=== PATIENT | female | born 1960 | race Caucasian/White ===

== ENCOUNTER 2016-07-26 12:13 | Day surgery (SDC) | payer OTHER ==
[~2016-07-26] VITALS: Ht 157.5 cm; Wt 81.0 kg
[~2016-07-26 12:13] MED LIST: BENADRYL25 MG PO; CITALOPRAM HBR20 M1 PO; DEPAKOTE125 MG PO; DEPAKOTE500 MG PO; DESYREL100 MG PO; DESYREL300 MG PO; DEXILANT60 MG PO; FLAVOXATE HCL100 MG PO; FLEXERIL10 MG PO; FLEXERIL5 M1 PO; FLONASE16 G1 BOTH NARES; GABAPENTIN100 MG PO; K-DUR20 MEQ PO; LASIX40 MG PO; METOCLOPRAMIDE H5 MG PO; MOBIC15 MG PO; MYRBETRIQ25 MG PO; NORCO 5/3251 TABLET PO; OXCARBAZEPINE150 MG PO; OXCARBAZEPINE300 MG PO; PEPCID20 MG PO; PROTONIX40 M1 PO; SIMVASTATIN40 M1 PO; TOPAMAX25 MG PO; TOPAMAX50 MG PO; TRAZODONE HCL100 MG PO; ZANTAC150 M1 PO; ZYRTEC10 M2 PO
[2016-07-26 13:20] VITALS: BP 121/83
[2016-07-26 13:39] LABS: ANION GAP 7 MEQ/L (2-14); CHLORIDE 104 MEQ/L (99-109); GFR ESTIMATE (CALCULATED) > 59 mL/min/; GLUCOSE 93 mg/dL (70-99); POTASSIUM 3.9 MEQ/L (3.7-5.4); SAMPLE HEMOLYSIS CHECK 0; SAMPLE ICTERIC CHECK 0; SAMPLE LIPEMIA CHECK 0; SODIUM 140 MEQ/L (136-147); UREA NITROGEN (BUN) 17 mg/dL (9-23)
[2016-07-26 18:20] VITALS: BP 155/89
[2016-07-26 20:00] VITALS: BP 16/89
== END 2016-07-26 20:20 | disposition home or self-care (01) ==
LOC: SDC 12:13
PROVIDERS: Orthopaedic Surgery
DX: M80.08XA Age-related osteoporosis with current pathological fracture, vertebra(e), initial encounter for fracture (principal); M89.78 Major osseous defect, other site; M47.816 Spondylosis without myelopathy or radiculopathy, lumbar region; M51.46 Schmorl's nodes, lumbar region; K21.9 Gastro-esophageal reflux disease without esophagitis; K44.9 Diaphragmatic hernia without obstruction or gangrene; M06.9 Rheumatoid arthritis, unspecified; J30.9 Allergic rhinitis, unspecified; Z82.49 Family history of ischemic heart disease and other diseases of the circulatory system; Z88.0 Allergy status to penicillin; Z88.8 Allergy status to other drugs, medicaments and biological substances
CPT/HCPCS: 80048; J0330; J1170; J2250; J2405; J2765; J3010

== ENCOUNTER 2016-08-20 21:16 | Observation (INO) | payer OTHER ==
[~2016-08-20] VITALS: Ht 157.5 cm; Wt 82.0 kg
[2016-08-20 22:50] LABS: EOSINOPHIL (%) 0.9 % (0-5); EOSINOPHIL COUNT 0.1 K/uL (0-0.3); HEMATOCRIT 41.7 % (36.0-46.0); IMMATURE GRANULOCYTE (%) 0.3 % (0.0-0.7); INSTRUMENT ABS NEUTROPHIL CT 5.3 K/uL; MCH 32.9 PG (29.0-34.0); MCHC 32.6 G/DL (30.0-36.0); MONOCYTE COUNT 0.6 K/uL (0-0.8); NEUTROPHIL (%) 75.6 % (45-76); NEUTROPHIL COUNT 5.3 K/uL (1.8-6.4); PLATELET COUNT 143 K/uL (156-360); RBC DIS.WIDTH-CV 12.4 % (11.8-14.6); RBC DIS.WIDTH-SD 46.5 % (39-53); RED BLOOD COUNT 4.13 M/uL (3.80-5.20)
[2016-08-20 23:01] LABS: AMYLASE 45 IU/L (1-118); CHLORIDE 104 mEq/L (99-109); POTASSIUM 4.8 mEq/L (3.7-5.4); SODIUM 140 mEq/L (136-147)
[2016-08-20 23:02] LABS: GLUCOSE 149 mg/dL (70-99)
[2016-08-20 23:04] LABS: ANION GAP 8 MEQ/L (2-14)
[2016-08-20 23:06] LABS: GFR ESTIMATE (CALCULATED) > 59 mL/min/; SERUM ETHYL ALCOHOL < 10 mg/dL
[2016-08-20 23:07] LABS: UREA NITROGEN (BUN) 11 mg/dL (9-23)
[2016-08-20 23:09] LABS: LIPASE 42 U/L (1.0-51.0)
[2016-08-21] MEDS ORDERED: BOTOX100 UNITS IJ ×2 (04:14→04:25)
[2016-08-21] MEDS ORDERED: SIMVASTATIN20 MG PO (04:15)
[2016-08-21] MEDS ORDERED: VESICARE10 MG PO (04:15)
[2016-08-21] MEDS ORDERED: POTASSIUM CHLO10 ME4 PO (04:16)
[2016-08-21] MEDS ORDERED: OXCARBAZEPINE300 MG PO (04:20)
[2016-08-21 05:12] VITALS: BP 109/71
[2016-08-21 07:01] LABS: ALKALINE PHOSPHATASE 55 IU/L (3-129); CREATINE KINASE 41 IU/L (1-294); TOTAL BILIRUBIN 0.3 MG/DL (0.0-1.0)
[2016-08-21 07:40] VITALS: BP 120/65
[2016-08-21 09:01] LABS: HEMATOCRIT 37.6 % (36.0-46.0); MCH 34.8 PG (29.0-34.0); MCV 102.2 FL (83-99); MEAN PLAT.VOLUME 12.5 uM^3 (9.5-12.4); PLATELET COUNT 137 K/uL (156-360); RBC DIS.WIDTH-CV 12.5 % (11.8-14.6); RBC DIS.WIDTH-SD 47.1 % (39-53); RED BLOOD COUNT 3.68 M/uL (3.80-5.20); WHITE BLOOD COUNT 6.6 K/uL (4.1-10.2)
[2016-08-21 09:19] LABS: ANION GAP 11 MEQ/L (2-14); CHLORIDE 104 MEQ/L (99-109); GFR ESTIMATE (CALCULATED) > 59 mL/min/; GLUCOSE 113 mg/dL (70-99); POTASSIUM 3.9 MEQ/L (3.7-5.4); SODIUM 140 MEQ/L (136-147); UREA NITROGEN (BUN) 12 mg/dL (9-23)
[2016-08-21 11:56] VITALS: BP 118/83
[2016-08-21 14:02] LABS: ADD MIUA? YES; BILIRUBIN NEGATIVE; BLOOD NEGATIVE; COLOR YELLOW ((YELLOW)); GLUCOSE (STRIP) NEGATIVE; KETONES NEGATIVE; LEUKOCYTES LARGE; NITRITE POSITIVE; PROTEIN (STRIP) NEGATIVE; SPECIFIC GRAVITY 1.009 (1.000-1.030); UROBILINOGEN 0.2 MG/DL (0.2-1.0)
[2016-08-21 14:13] LABS: BACTERIA 3+ /HPF; EPITHELIAL CELLS RARE /HPF; MUCUS TRACE /LPF; RED BLOOD CELLS 0-5 /HPF (0-5); WHITE BLOOD CELLS TNTC /HPF (0-5); WHITE BLOOD CELLS CLUMP FEW /HPF (0-5)
[2016-08-21] MEDS ORDERED: DESYREL100 MG PO (14:27)
[2016-08-21 15:07] LABS: AMPHETAMINES QUANT VALUE 0 NG/ML; BARBITUATES QUANT VALUE 0 NG/ML; BENZODIAZEPINES QUANT VALUE 0 NG/ML; BENZODIAZEPINES, URINE SCREEN Negative (200 ng/mL); MARIJUANA QUANT VALUE 0 NG/ML; OPIATES QUANTITATIVE VALUE 0 NG/ML; PHENCYCLIDINE QUANT VALUE 0 NG/ML
[2016-08-21 16:48] VITALS: BP 139/69
[2016-08-21 20:33] VITALS: BP 134/76
[2016-08-22 00:43] VITALS: BP 130/60
[2016-08-22 06:13] LABS: HEMATOCRIT 33.6 % (36.0-46.0); MCHC 34.2 G/DL (30.0-36.0); MCV 99.4 FL (83-99); MEAN PLAT.VOLUME 11.7 uM^3 (9.5-12.4); PLATELET COUNT 117 K/uL (156-360); RBC DIS.WIDTH-CV 12.4 % (11.8-14.6); RBC DIS.WIDTH-SD 45.6 % (39-53); RED BLOOD COUNT 3.38 M/uL (3.80-5.20); WHITE BLOOD COUNT 5.3 K/uL (4.1-10.2)
[2016-08-22 06:35] LABS: ANION GAP 5 MEQ/L (2-14); CHLORIDE 107 MEQ/L (99-109); GFR ESTIMATE (CALCULATED) > 59 mL/min/; GLUCOSE 92 mg/dL (70-99); SAMPLE HEMOLYSIS CHECK 0; SAMPLE ICTERIC CHECK 0; SAMPLE LIPEMIA CHECK 0; SODIUM 141 MEQ/L (136-147); UREA NITROGEN (BUN) 10 mg/dL (9-23)
[2016-08-22 07:41] VITALS: BP 118/75
[2016-08-22 16:01] VITALS: BP 114/66
[2016-08-22 22:53] VITALS: BP 96/56
[2016-08-23 08:10] LABS: HEMATOCRIT 33.3 % (36.0-46.0); MCH 33.2 PG (29.0-34.0); MCV 100.6 FL (83-99); MEAN PLAT.VOLUME 11.6 uM^3 (9.5-12.4); PLATELET COUNT 125 K/uL (156-360); RBC DIS.WIDTH-CV 12.7 % (11.8-14.6); RBC DIS.WIDTH-SD 47.1 % (39-53); RED BLOOD COUNT 3.31 M/uL (3.80-5.20); WHITE BLOOD COUNT 4.8 K/uL (4.1-10.2)
[2016-08-23 08:20] LABS: CHLORIDE 107 mEq/L (99-109); POTASSIUM 4.2 mEq/L (3.7-5.4); SODIUM 141 mEq/L (136-147)
[2016-08-23 08:22] LABS: GLUCOSE 90 mg/dL (70-99)
[2016-08-23 08:23] LABS: ANION GAP 4 MEQ/L (2-14)
[2016-08-23 08:25] LABS: GFR ESTIMATE (CALCULATED) > 59 mL/min/
[2016-08-23 08:26] LABS: UREA NITROGEN (BUN) 18 mg/dL (9-23)
[2016-08-23 15:56] VITALS: BP 94/51
[2016-08-24 00:11] VITALS: BP 156/80
[2016-08-24 07:51] VITALS: BP 108/69
[2016-08-24 15:48] VITALS: BP 102/60
[2016-08-24 23:58] VITALS: BP 111/67
[2016-08-25 08:00] VITALS: BP 99/59
[2016-08-25 10:00] LABS: HEMATOCRIT 33.7 % (36.0-46.0); MCH 34.3 PG (29.0-34.0); MCHC 33.8 G/DL (30.0-36.0); MCV 101.5 FL (83-99); MEAN PLAT.VOLUME 11.3 uM^3 (9.5-12.4); PLATELET COUNT 156 K/uL (156-360); RBC DIS.WIDTH-CV 12.7 % (11.8-14.6); RBC DIS.WIDTH-SD 47.4 % (39-53); RED BLOOD COUNT 3.32 M/uL (3.80-5.20); WHITE BLOOD COUNT 3.1 K/uL (4.1-10.2)
[2016-08-25 10:47] LABS: ANION GAP 7 MEQ/L (2-14); CHLORIDE 100 MEQ/L (99-109); GFR ESTIMATE (CALCULATED) > 59 mL/min/; GLUCOSE 104 mg/dL (70-99); SAMPLE HEMOLYSIS CHECK 0; SAMPLE ICTERIC CHECK 0; SAMPLE LIPEMIA CHECK 0; SODIUM 138 MEQ/L (136-147)
[2016-08-25 10:52] LABS: UREA NITROGEN (BUN) 29 mg/dL (9-23)
[2016-08-25 16:00] VITALS: BP 105/66
[2016-08-25 23:36] VITALS: BP 96/53
[2016-08-26 06:12] VITALS: BP 98/61
[2016-08-26 09:21] LABS: HEMATOCRIT 35.8 % (36.0-46.0); MCH 33.9 PG (29.0-34.0); MCHC 33.2 G/DL (30.0-36.0); MEAN PLAT.VOLUME 10.7 uM^3 (9.5-12.4); PLATELET COUNT 176 K/uL (156-360); RBC DIS.WIDTH-CV 12.9 % (11.8-14.6); RBC DIS.WIDTH-SD 48.2 % (39-53); RED BLOOD COUNT 3.51 M/uL (3.80-5.20); WHITE BLOOD COUNT 3.9 K/uL (4.1-10.2)
[2016-08-26 10:10] LABS: ANION GAP 9 MEQ/L (2-14); CHLORIDE 101 MEQ/L (99-109); GFR ESTIMATE (CALCULATED) > 59 mL/min/; GLUCOSE 88 mg/dL (70-99); POTASSIUM 4.1 MEQ/L (3.7-5.4); SAMPLE HEMOLYSIS CHECK 0; SAMPLE ICTERIC CHECK 0; SAMPLE LIPEMIA CHECK 0; SODIUM 140 MEQ/L (136-147); UREA NITROGEN (BUN) 28 mg/dL (9-23)
[2016-08-26 11:50] VITALS: BP 107/56
[2016-08-26 23:24] VITALS: BP 141/66
[2016-08-27 17:06] VITALS: BP 99/57
[2016-08-27 23:53] VITALS: BP 111/78
[2016-08-28 09:38] VITALS: BP 140/70
[2016-08-28 15:50] VITALS: BP 118/96
[2016-08-28 23:49] VITALS: BP 115/67
[2016-08-29 08:47] VITALS: BP 102/64
[2016-08-29 12:01] VITALS: BP 130/60
[2016-08-29 12:31] VITALS: BP 99/60
[2016-08-29 16:40] VITALS: BP 109/53
[2016-08-29 23:42] VITALS: BP 136/87
[2016-08-30] MEDS ORDERED: BACTRIM,SEPT1 TABLET PO (10:24)
== END 2016-08-30 16:09 ==
LOC: EME 21:16 → 3EAST 08-21 03:28 → EDOF 08-21 03:28 → 3EAST 08-21 04:50
PROVIDERS: Emergency Medicine; Hospitalist; Physician Assistant
DX: S42.292A Other displaced fracture of upper end of left humerus, initial encounter for closed fracture (principal); W01.0XXA Fall on same level from slipping, tripping and stumbling without subsequent striking against object, initial encounter; N39.0 Urinary tract infection, site not specified; B96.20 Unspecified Escherichia coli [E. coli] as the cause of diseases classified elsewhere; N39.3 Stress incontinence (female) (male); F33.9 Major depressive disorder, recurrent, unspecified; B37.2 Candidiasis of skin and nail; R26.9 Unspecified abnormalities of gait and mobility; M50.322 Other cervical disc degeneration at C5-C6 level; M50.323 Other cervical disc degeneration at C6-C7 level; M50.321 Other cervical disc degeneration at C4-C5 level; G89.29 Other chronic pain; G62.89 Other specified polyneuropathies; E78.5 Hyperlipidemia, unspecified; M48.02 Spinal stenosis, cervical region; Z88.0 Allergy status to penicillin; K21.9 Gastro-esophageal reflux disease without esophagitis; Z60.2 Problems related to living alone
CPT/HCPCS: 70450; 70551; 71250; 72125; 72141; 72148; 73030; 73502; 73590; 80048; 80076; 80164; 80306 90; 81003; 82150; 82550; 82607; 83690; 84443; 85025; 85027; 86900; 86901; 87077; 87086; 87186; 93926; 97530 GO; 97530 GP; 99281; 99285; G0378; G0480; J0696; J1644; J2405; J7030; J7050

== ENCOUNTER 2016-09-25 10:16 | Emergency (ER) | payer OTHER ==
[~2016-09-25] VITALS: Ht 157.5 cm; Wt 82.5 kg
[~2016-09-25 10:16] MED LIST changes: +BACTRIM,SEPT1 TABLET PO; +BOTOX100 UNITS IJ; +POTASSIUM CHLO10 ME4 PO; +SIMVASTATIN20 MG PO; +VESICARE10 MG PO
[2016-09-25 11:56] LABS: HEMATOCRIT 37.1 % (36.0-46.0); MCH 33.3 PG (29.0-34.0); MCHC 32.3 G/DL (30.0-36.0); MCV 103.1 FL (83-99); MEAN PLAT.VOLUME 10.4 uM^3 (9.5-12.4); PLATELET COUNT 145 K/uL (156-360); RBC DIS.WIDTH-SD 49.2 % (39-53); WHITE BLOOD COUNT 3.8 K/uL (4.1-10.2)
[2016-09-25 12:13] LABS: CHLORIDE 101 mEq/L (99-109); POTASSIUM 4.4 mEq/L (3.7-5.4); SODIUM 138 mEq/L (136-147)
[2016-09-25 12:15] LABS: GLUCOSE 81 mg/dL (70-99)
[2016-09-25 12:16] LABS: ANION GAP 6 MEQ/L (2-14)
[2016-09-25 12:17] LABS: TOTAL BILIRUBIN 0.3 mg/dL (0.0-1.0); TROP-I INTERPRETATION NEGATIVE; TROPONIN-I < 0.01 ng/mL (0.0-0.30)
[2016-09-25 12:18] LABS: ALKALINE PHOSPHATASE 81 IU/L (3-129)
[2016-09-25 12:19] LABS: GFR ESTIMATE (CALCULATED) > 59 mL/min/
[2016-09-25 12:20] LABS: UREA NITROGEN (BUN) 15 mg/dL (9-23)
[2016-09-25 14:40] LABS: TROP-I INTERPRETATION NEGATIVE; TROPONIN-I < 0.01 ng/mL (0.0-0.30)
[2016-09-25] MEDS ORDERED: BACLOFEN10 MG PO (15:08)
[2016-09-25 15:20] VITALS: BP 117/67
== END 2016-09-25 15:21 | disposition home or self-care (01) ==
LOC: EME 10:16
PROVIDERS: Nurse Practitioner Family
DX: R07.89 Other chest pain (principal); E78.5 Hyperlipidemia, unspecified; F32.9 Major depressive disorder, single episode, unspecified; K21.9 Gastro-esophageal reflux disease without esophagitis; Z87.891 Personal history of nicotine dependence; Z88.0 Allergy status to penicillin; Z88.6 Allergy status to analgesic agent
CPT/HCPCS: 71020; 80053; 84484; 85027; 85379; 93005; 99281; 99284

== ENCOUNTER → 2016-10-17 | Outpatient (CLI) | payer OTHER ==
[~2016-10-17] MED LIST changes: +BACLOFEN10 MG PO
== END | disposition home or self-care (01) ==
LOC: EKG 12:43
DX: I05.1 Rheumatic mitral insufficiency (principal); I07.1 Rheumatic tricuspid insufficiency; I27.2 Other secondary pulmonary hypertension; R60.9 Edema, unspecified
CPT/HCPCS: 93306

== ENCOUNTER → 2017-06-20 | Outpatient (CLI) | payer OTHER | END | disposition home or self-care (01) | LOC: NUC 08:30 | DX: R11.0 Nausea (principal) | CPT/HCPCS: 78264; A9541 ==